=== PATIENT | female | born 1960 | race Two or more races ===

== ENCOUNTER 2020-02-20 09:56 | Outpatient (CLI) | payer OTHER | END 2020-02-20 23:59 | disposition home or self-care (01) | LOC: LAB 09:56 | PROVIDERS: ATTEND Specialist | DX: Z01.812 Encounter for preprocedural laboratory examination (principal); Z20.828 Contact with and (suspected) exposure to other viral communicable diseases | CPT/HCPCS: 87426; C9803; U0003 ==

== ENCOUNTER 2020-02-27 06:02 | Day surgery (SDC) | payer OTHER ==
[2020-02-27] MEDS ORDERED: methylPREDNISolone ACETATE 80 MG/ML VIAL ONE (06:33)
[2020-02-27] MEDS ORDERED: ANESTHESIA TRAY IN PYXIS 1 EA TRAY MC ONE (06:33)
[2020-02-27] MEDS ORDERED: BUPIVACAINE 0.5 % PF 150 MG/30 ML VIAL ONE (06:33)
[2020-02-27] MEDS ORDERED: FENTANYL PF 250MCG/5ML AMPUL ONE (06:43)
[2020-02-27] MEDS ORDERED: MIDAZOLAM HCL 2 MG/2ML VIAL ONE (06:43)
== END 2020-02-27 08:50 | disposition home or self-care (01) ==
LOC: DS 06:02
PROVIDERS: ATTEND Specialist
DX: S83.242A Other tear of medial meniscus, current injury, left knee, initial encounter (principal); M94.262 Chondromalacia, left knee; X58.XXXA Exposure to other specified factors, initial encounter; Y93.89 Activity, other specified; Y92.89 Other specified places as the place of occurrence of the external cause; Y99.8 Other external cause status; Z86.718 Personal history of other venous thrombosis and embolism
CPT/HCPCS: 29881; 88304; 88311; A4217; A6253; J0690; J1040; J1885; J2250; J2405; J2704; J3010; J3490